=== PATIENT | female | born 1950 | race Caucasian/White ===

== ENCOUNTER 2025-05-01 10:44 | Emergency (ER) | payer MEDICARE, OTHER ==
[2025-05-01 11:12] LABS: #Basophils 0.1 thou/uL (0.0-0.2); #Eosinophils 0.1 thou/uL (0.0-0.7); #Lymphocytes 1.6 thou/uL (1.20-3.40); #Monocytes 0.5 thou/uL (0.11-0.59); #Neutrophils 4.0 thou/uL (1.40-6.50); %Basophils 1.8 % (0.0-1.0); %Eosinophils 1.0 % (0.0-10.0); %Lymphocytes 25.2 % (21.0-51.0); %Monocytes 7.4 % (0.0-10.0); %Neutrophils 64.6 % (42.0-75.0); Hematocrit 37.1 % (36.0-47.0); Hemoglobin 13.8 g/dL (12.0-16.0); Mean Corpuscular Hemoglobin 31.0 pg (27.0-31.0); Mean Corpuscular Volume 83.2 fl (78.0-98.0); Platelet Count 179 10x3/uL (130-400); Red Blood Cell (RBC) Count 4.46 mill/uL (4.20-5.40); White Blood Cell (WBC) Count 6.2 10x3/uL (4.8-10.8)
[2025-05-01 11:13] LABS: MDiff Complete? YES
[2025-05-01 11:15] LABS: INR-International Normal Ratio 1.0; PTT 25.5 sec (22.9-36.1); Prothrombin Time 13.3 sec (12.0-14.7)
[2025-05-01 11:23] LABS: ALT (SGPT) 36 U/L (Less than 34); AST (SGOT) 53 U/L (11-34); Albumin 4.0 g/dL (3.1-4.5); Alkaline Phosphatase 49 U/L (40-110); Anion Gap 19 mmol/L (10-20); BUN (Urea Nitrogen) 22 mg/dL (9.8-20.1); Bilirubin, Total 1.1 mg/dL (0.3-1.2); Calc. Creatinine Clearance 0 mL/min (70-130); Calcium 9.2 mg/dL (7.8-10.44); Carbon Dioxide 27 mmol/L (23-31); Chloride 99 mmol/L (98-107); Globulin 2.6 g/dL (2.4-3.5); Glucose 110 mg/dL (83-110); Potassium 2.8 mmol/L (3.5-5.1); Sodium 142 mmol/L (136-145)
== END 2025-05-01 12:30 | disposition home or self-care (01) ==
LOC: BURERS 10:44
DX: S00.03XA Contusion of scalp, initial encounter (principal); E86.0 Dehydration; E87.6 Hypokalemia; I10 Essential (primary) hypertension; Z79.899 Other long term (current) drug therapy; W19.XXXA Unspecified fall, initial encounter
CPT/HCPCS: 70450; 72125; 80053; 85025; 85610; 85730; 93005; 96360